=== PATIENT | male | born 1960 | race African-American/Black ===

== ENCOUNTER 2023-03-26 21:06 | Emergency (ER) | payer MEDICARE, OTHER ==
[~2023-03-26] VITALS: Ht 170.2 cm; Wt 56.7 kg
--- NOTE | 2023-03-26 21:10 | NUR ---
PT CARLAA FOR N/V.
[2023-03-26] MEDS ORDERED: METOCLOPRAMIDE HCL 10 MG/2 ML VIAL ONE (21:27)
[2023-03-26] MEDS ORDERED: diphenhydrAMINE 50 MG/1 ML VIAL ONE (21:27)
[2023-03-26] MEDS ORDERED: IV NORMAL SALINE 1000 ML BAG IV ONE (21:30)
[2023-03-26] MEDS ORDERED: diphenhydrAMINE 50 MG/1 ML VIAL IV ONE (21:30)
[2023-03-26] MEDS ORDERED: METOCLOPRAMIDE HCL 10 MG/2 ML VIAL IV ONE (21:30)
[2023-03-26 21:31] LABS: HEMATOCRIT 41.3 % (36.7-47.1); MEAN CORPUSCULAR HEMOGLOBIN 28.3 uug (23.8-33.4); MEAN CORPUSCULAR VOLUME 85.5 fL (73.0-96.2); PLATELET COUNT (AUTO) 228 K/uL (152-348)
[2023-03-26 21:39] LABS: CARBON DIOXIDE 24 mmol/L (21-32); CHLORIDE 97 mmol/L (98-107); CREATININE 1.2 mg/dL (0.6-1.3); POTASSIUM 3.7 mmol/L (3.5-5.1); UREA NITROGEN, BLOOD 14 mg/dL (7-18)
--- NOTE | 2023-03-26 21:42 | NUR ---
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 Placed on monitor, informed of plan of care, #20g established in right forearm, blood collected and sent to lab. Patient has been seen by ER provider, awaiting lab results, Patient has been medicated as per order and IVF infusing as per order, will continue to monitor.
[2023-03-26 21:47] LABS: ALANINE AMINOTRANSFERASE 20 U/L (16-63); ALKALINE PHOSPHATASE 134 U/L (50-136); ASPARTATE AMINOTRANSFERASE 29 U/L (15-37); BILIRUBIN,DIRECT 0.1 mg/dL (0.0-0.2); BILIRUBIN,TOTAL 0.9 mg/dL (0.2-1.0); LIPASE 175 U/L (73-393); TOTAL PROTEIN, SERUM 8.7 g/dL (6.4-8.2)
--- NOTE | 2023-03-26 21:54 | NUR ---
Patient off unit via [facility]ney.
--- NOTE | 2023-03-26 22:16 | NUR ---
MD at bedside talking with patient, COVID swab done and sent to lab.
--- NOTE | 2023-03-26 22:33 | NUR ---
at bedside, updated on plan of care at this time.
[2023-03-26] MEDS ORDERED: ONDA4TAB5 PO (23:09)
--- NOTE | 2023-03-26 23:22 | NUR ---
ACI GIVEN, REMAINS STABLE FOR DISCHARGE HOME WITH FAMILY, HL REMOVED.
[2023-03-26 23:33] VITALS: BP 156/74; O2SAT 100
== END 2023-03-26 23:34 | disposition home or self-care (01) ==
LOC: ER 21:06
DX: G40.909 Epilepsy, unspecified, not intractable, without status epilepticus (principal); R11.2 Nausea with vomiting, unspecified; R53.1 Weakness; R07.89 Other chest pain; Z88.5 Allergy status to narcotic agent; Z79.899 Other long term (current) drug therapy; Z20.822 Contact with and (suspected) exposure to COVID-19
CPT/HCPCS: 99285; 70450; 96374; 71045; 96361; 96375; 87426; 80076; 80048; 83690; 85025; 84484; 93005; 74176; J1200; J2765; J7040; A4663